=== PATIENT | female | born 1990 | race Caucasian/White ===

== ENCOUNTER 2016-11-15 21:56 | Emergency (ER) | payer MEDICAID, SELFPAY ==
[2016-11-15 22:27] LABS: Bilirubin Negative (Negative); Blood, Urine Negative (Negative); Glucose, Urine (Dipstick) Negative (Negative); Ketone, Urine Negative (Negative); Nitrite Negative (Negative); Protein, Urine (Dipstick) Negative (Neg-Trace); Urobilinogen 0.2 mg/dL (0.2-1.0)
[2016-11-15 22:34] LABS: Bacteria/HPF 1+ HPF (None Seen); RBC/HPF 0-3 HPF (0-3); Squamous Epithelial 0-3 HPF (0-3)
[2016-11-15] MEDS ORDERED: Bisacodyl 10 MG SUPP ONE (22:55)
[2016-11-15] MEDS ORDERED: Nitrofurantoin Monohyd/M-Cryst 100 MG CAP ONE (22:55)
[2016-11-15] MEDS ORDERED: Magnesium Citrate 300 ML BOT ONE (22:55)
--- NOTE | 2016-11-15 23:16 | ERRECORD ---
[facility] EMERGENCY RECORD HPI CONSTIPATION (22:51 JPIP) CHIEF COMPLAINT: Patient presents for evaluation of constipation, Patient presents for evaluation of abdominal pain, Patient presents for evaluation of no bowel movement, 1 week. HISTORIAN: History provided by patient. LOCATION: Symptoms are generalized. QUALITY: Pain is dull in nature, described as cramping. SEVERITY: Current severity of pain rated as 8/10. TIME COURSE: Sudden onset of symptoms, 1, weeks ago, There has been no change in the patient's symptoms over time, are constant, has had intermittent constipation for 1 year. ASSOCIATED WITH: No associated anorexia, No associated black tarry stools, No associated bloody stools, No associated decrease flatus, Associated with nausea, No associated rectal bleeding, Associated with vomiting, morning sickness prior to this event. EXACERBATED BY: Patient's condition exacerbated by nothing. RELIEVED BY: Patient's condition relieved by nothing. ROS (22:52 JPIP) CONSTITUTIONAL: Historian denies chills, denies fever. RESPIRATORY: Historian denies cough, denies shortness of breath. GI: Historian reports abdominal pain, reports constipation, reports nausea, reports vomiting. morning sickness. GENITOURINARY FEMALE: Historian reports dysuria, reports , reports urgency. SKIN: Historian denies rash, denies skin changes, denies skin lesions. NOTES: All systems reviewed, negative except as described above. PAST MEDICAL HISTORY MEDICAL HISTORY: Past medical history includes GERD REVIEWED 11/15/16. (22:22 CHOB) FEMALE SURGICAL HISTORY: Patient has no surgical history. REVIEWED 11/15/16. (22:22 CHOB) PSYCHIATRIC HISTORY: Psychiatric history includes, anxiety. REVIEWED 11/15/16. (22:22 CHOB) SOCIAL HISTORY: Patient drinks socially, Patient denies drug use, Patient currently uses tobacco, smokes cigarettes, Patient smokes 1 pack per day. STOPPED SMOKING ETOH 09/2016 UPON BECOMING REVIEWED 11/15/16. (22:22 CHOB) NOTES: Nursing records reviewed, Medication list reviewed. (22:54 JPIP) KNOWN ALLERGIES Bactrim: Reaction: Rash, Severity: Moderate, Source: Patient cephALEXin: Reaction: Anaphylaxis, Severity: Severe, Source: &a-1R&a+25V*p+0X*[id number]*c202B*c15G*c2P*p-0X&a-25V&a+1R Name: Hellen Deal : 1990 F25 MedRec: [id number] AcctNum: [id number] Prepared: TueNov 15, 2016 23:08 by Interface Page 1 of 3 pMD [facility] EMERGENCY RECORD Patient CURRENT MEDICATIONS (22:28 CHOB) None VITAL SIGNS VITAL SIGNS: BP: 119/90, Pulse: 78 (Regular), Resp: 18 (Non-Labored), Temp: 98.2 (Oral), Pain: 8 (Pressure), O2 sat: 100 on Room Air, Time: 11/15/2016 22:00. (22:00 CHOB) BP: 114/78, Pulse: 80, Resp: 18, Temp: 97.3, Pain: 8, O2 sat: 99 on RA, Time: 11/15/2016 22:59. (22:59 CHOB) PHYSICAL EXAM (22:53 JPIP) CONSTITUTIONAL: Vital signs reviewed, Patient afebrile, Pulse normal, Blood pressure normal, Respiratory rate normal, Patient appears, uncomfortable, Patient alert and oriented to person, place and time. HEAD: Head exam included findings of head atraumatic, normocephalic. EYES: Eye exam included findings of eyelids normal to inspection, Conjunctiva normal, Sclera normal, no periorbital ecchymosis, no periorbital edema, no periorbital erythema. NECK: Neck exam included findings of normal range of motion. RESPIRATORY CHEST: Respiratory exam included findings of no respiratory distress, Breath sounds clear, No wheezing, No rales, No rhonchi, Breath sounds not absent, Breath sounds not diminished. CARDIOVASCULAR: Cardiovascular exam included findings of heart rate regular rate and rhythm, Heart sounds normal. ABDOMEN FEMALE: Abdominal exam included findings of abdomen tender, diffusely, mild intensity, Bowel sounds, hypoactive, Liver normal, Spleen normal, no distension, no mass, no pulsatile masses, no peritoneal signs, no rigidity, no guarding, no rebound, no guarding, not an acute abdomen. BACK: no costovertebral angle tenderness. UPPER EXTREMITY: Upper extremity exam included findings of inspection normal, Range of motion normal. NEURO: [place] coma scale 15, Neuro exam findings include patient oriented to person, place and time, no focal motor deficits. SKIN: Skin exam included findings of skin warm, dry, and normal in color. PSYCHIATRIC: Normal affect. MEDICATION ADMINISTRATION SUMMARY Drug Name: Citroma, Dose Ordered: 296 mL, Route: Oral, Status: Given, Time: 22:58 11/15/2016, Drug Name: Dulcolax (bisacodyl) rectal, Dose Ordered: 10 mg, Route: Rectal, Status: Given, Time: 22:55 11/15/2016, Drug Name: Macrobid, Dose Ordered: 100 mg, Route: Oral, Status: &a-1R&a+25V*p+0X*[id number]*c202B*c15G*c2P*p-0X&a-25V&a+1R Name: Hellen Deal : 1990 F25 MedRec: [id number] AcctNum: [id number] Prepared: TueNov 15, 2016 23:08 by Interface Page 2 of 3 pMD [facility] EMERGENCY RECORD Given, Time: 22:53 11/15/2016, Detailed record available in Medication Service section. PROBLEM LIST No recorded problems DIAGNOSIS (22:50 JPIP) FINAL: PRIMARY: constipation, ADDITIONAL: Acute cystitis without hematuria. PRESCRIPTION Macrobid: CAPSULE (HARD, SOFT, ETC.) : 100 mg : ORAL : Quantity: 1 Unit: tab(s) Route: ORAL Schedule: 2 times a day (before meals) Dispense: 20 May substitute. Refills: No Refills . (22:43 JPIP) NOTES: No refills. (22:43 JPIP) BLANQUITA-COLACE tablet: TABLET : 8.6 mg-50 mg : ORAL : Quantity: 1-2 Unit: tab(s) Route: ORAL Schedule: 1 to 2 times a day Dispense: 30 May substitute. Refills: No Refills . (22:46 JPIP) NOTES: No refills. (22:46 JPIP) Miralax: POWDER (GM) : 17 gram/dose : ORAL : Quantity: 17 Unit: g Route: ORAL Schedule: once a day (in the morning) Dispense: 1 can May substitute. Refills: No Refills . (22:46 JPIP) NOTES: One scoop mixed in fluid of choice every day. No refills. (22:46 JPIP) DISPOSITION PATIENT: Disposition Type: Discharge, Disposition: *Discharge Home, Condition: Good. (22:50 JPIP) Patient left the department. (23:01 HARSHA) Lopez: HARSHA=SEBASTIAN Valdovinos, Jacqueline JPIP=DO Gallegos Joseph &a-1R&a+25V*p+0X*[id number]*c202B*c15G*c2P*p-0X&a-25V&a+1R Name: Sravani Dealbie Mason : 1990 F25 MedRec: [id number] AcctNum: [id number] Prepared: TueNov 15, 2016 23:08 by Interface Page 3 of 3 pMD MTDD
--- NOTE | 2016-11-15 23:27 | PICIS ---
[facility] EMERGENCY RECORD TRIAGE (TueNov 15, 2016 22:10 CHOB) PATIENT: NAME: Hellen Deal, AGE: 25, GENDER: female, : Sat 1990, TIME OF GREET: TueNov 15, 2016 21:57, PREFERRED LANGUAGE: Bangladeshi, ETHNICITY: Not or , ECODE BILLING MAP: [facility], SSN: [id number], Zip Code: [address], KG WEIGHT: 46.72 (est.), PHONE: , , , PERSON ID: [id number], PCP: MELA Gonsalez Kimberly. (TueNov 15, 2016 22:10 CHOB) PAYMENT: [facility] Medicaid. (22:17) TRIAGE NOTES: PT HAS BEEN CONSTIPATED X1 MONTH, IS 2 MONTHS . LAST BM 1.5 WEEKS AGO. ALSO C/O URINARY FREQUENCY X2 WEEKS AND ABDOMINAL PAIN/VOMITING. (TueNov 15, 2016 22:10 CHOB) COMPLAINT: CONSTIPATION. (TueNov 15, 2016 22:10 CHOB) ADMISSION: URGENCY: 3 Urgent, ADMISSION SOURCE: Home, TRANSPORT: CAR, BED: ER -03. (TueNov 15, 2016 22:10 CHOB) ASSESSMENT: Assessment: PT A/OX4, SPEAKS FULL SENTENCES, ABDOMEN SOFT, NON TENDER, HYPOACTIVE BS ALL QUADRANTS. RESPIRATIONS EVEN NON LABORED, SKIN PWD. AMBULATES WITH STEADY GAIT. NO ACUTE DISTRESS NOTED., Symptoms began 11/15/2015 22:46. (22:10 CHOB) PAIN: Location VOICES INTERMITTENT BLOATING/PRESSURE RATED 8/10, Pain is intermittent, No relieving factors. (22:10 CHOB) IMMUNIZATIONS: Notes: ALL IMMUNIZATIONS UP TO DATE. RECEIVED FLU SHOT 2015/2016 SE[place]ON. (22:10 CHOB) SIRS SCORING: Heart Rate 55-109 (0), Temp range 96.8-101.1 (0), respiratory rate 12-24 (0), Mental Status altered: no (0), Infection or Suspected Infection: No. (22:10 CHOB) TRIAGE SCREENING: Patient denies suicidal ideation, Patient denies presence of domestic violence. (22:10 CHOB) PROVIDERS: TRIAGE NURSE: Jacqueline Valdovinos RN. (TueNov 15, 2016 22:10 CHOB) VITAL SIGNS: BP 119/90, Pulse 78, (Regular), Resp 18, (Non-Labored), Temp 98.2, (Oral), Pain 8, (Pressure), O2 Sat 100, on Room Air, Time 11/15/2016 22:00. (22:00 CHOB) KNOWN ALLERGIES Bactrim: Reaction: Rash, Severity: Moderate, Source: Patient cephALEXin: Reaction: Anaphylaxis, Severity: Severe, Source: Patient CURRENT MEDICATIONS (22:28 CHOB) None VITAL SIGNS VITAL SIGNS: BP: 119/90, Pulse: 78 (Regular), Resp: 18 (Non-Labored), Temp: 98.2 (Oral), Pain: 8 (Pressure), O2 sat: 100 on Room Air, Time: 11/15/2016 22:00. (22:00 CHOB) BP: 114/78, Pulse: 80, Resp: 18, Temp: 97.3, Pain: 8, O2 sat: 99 on RA, Time: 11/15/2016 22:59. (22:59 CHOB) &a-1R&a+25V*p+0X*t5750V*c202B*c15G*c2P*p-0X&a-25V&a+1R Name: Hellen Deal : 1990 F25 MedRec: [id number] AcctNum: [id number] Prepared: TueNov 15, 2016 23:14 by Interface Page 1 of 8 pMD [facility] EMERGENCY RECORD NURSING ASSESSMENT: ABDOMEN (22:20 CHOB) CONSTITUTIONAL: Complex assessment performed, Patient arrives ambulatory, Gait steady, History obtained from patient, Patient appears comfortable, Patient cooperative, Patient alert, Oriented to person, place and time, Skin warm, Skin dry, Skin normal in color, Mucous membranes pink, Mucous membranes moist, Patient is well-groomed, Patient complains of ABDOMINAL PAIN, CONSTIPATION,URINARY FREQUENCY. PAIN: cramping pain, diffusely, Onset of pain 10/15/2016 22:28, constant, on a scale 0-10 patient rates pain as 8, PT HAS TAKEN MULTIPLE OTC LAXATIVES, INCLUDING CASTROL OIL, WHICH PT STATES DID WORK BUT PCP INSTRUCTED HER TO STOP TAKING APPX 2 WEEKS AGO. NO OTHER LAXATIVE TRIED HAS BEEN EFFECTIVE. ABDOMEN: Abdomen assessment findings include abdomen symmetrical, Abdomen soft, non-tender, Bowel sounds, hypoactive, to all four quadrants, Associated with nausea, Associated with vomiting, currently, Number of times: 1, vomiting food, no associated diarrhea, Associated with constipation, Date of last bowel movement: 11/07/16. LMP: First day last menstrual period, Last period started on 10/12/2016, Milestones: Estimated Conception: 10/26/2016 Estimated Due date: 07/19/2017 Estimated age: 4 weeks, 6 days, Patient confirms . GENITOURINARY FEMALE: Female genitourinary assessment findings include external genitalia normal, Associated with urinary complaints, frequency, no associated vaginal discharge, no associated vaginal bleeding, , per patient, Last menstrual period started on 10/12/2016, milestones: Estimated Conception: 10/26/2016 Estimated Due date: 07/19/2017 Estimated age: 4 weeks, 6 days, : 2, Para: 1, Elective abortions: 0, Spontaneous abortions: 0. SAFETY: Side rails up, Cart/Stretcher in lowest position, Family at bedside, Call light within reach, Hospital ID band on. NURSING ASSESSMENT: GENITOURINARY (22:20 CHOB) CONSTITUTIONAL: Complex assessment performed, Patient arrives ambulatory, Gait steady, History obtained from patient, Patient appears comfortable, Patient cooperative, Patient alert, Oriented to person, place and time, Skin warm, Skin dry, Skin normal in color, Mucous membranes pink, Mucous membranes moist, Patient is well-groomed, Patient complains of URINARY FREQUENCY,ABDOMINAL PAIN,CONSTIPATION. PAIN FEMALE: PT DENIES PAIN, VOICES URINARY FREQUENCY X2 WEEKS AND CLOUDY URINE. &a-1R&a+25V*p+0X*h6288I*c202B*c15G*c2P*p-0X&a-25V&a+1R Name: Hellen Deal : 1990 F25 MedRec: [id number] AcctNum: [id number] Prepared: TueNov 15, 2016 23:14 by Interface Page 2 of 8 pMD [facility] EMERGENCY RECORD GENITOURINARY FEMALE: Female genitourinary assessment findings include external genitalia normal, Associated with urinary complaints, frequency, Date and time of last void: 11/15/2016 22:33. ABDOMEN: Abdomen assessment findings include abdomen symmetrical, Abdomen soft, non-tender, Associated with nausea, Associated with vomiting, currently, Number of times: 1, vomiting food, no associated diarrhea, Associated with constipation, Date of last bowel movement: 11/07/16, no associated weight change, no associated appetite change, no associated foreign travel. SAFETY: Side rails up, Cart/Stretcher in lowest position, Family at bedside, Call light within reach, Hospital ID band on. NURSING PROCEDURE: DISCHARGE NOTE (22:59 CHOB) DISCHARGE: Patient discharged to home, ambulating without assistance, driving self, accompanied by other family member, Patient requested and was provided an electronic copy of Discharge Instructions, Discharge instructions given to patient, Simple or moderate discharge teaching performed, by SEBASTIAN HORTA, Prescriptions given and instructions on side effects given, Name of prescription(s) given: MIRILAX 17GM,PERICOLACE x30,MACROBID [id number], Above person(s) verbalized understanding of discharge instructions and follow-up care. BELONGINGS: Belongings and valuables with patient at time of discharge include:, Belongings remain with patient. SAFETY: Side rails up, Cart/Stretcher in lowest position, Family at bedside, Call light within reach, Hospital ID band on. VITAL SIGNS: BP: 114, / 78, Pulse: 80, Resp: 18, Temp: 97.3, Pain: 8, O2 sat: 99, on: RA. NURSING PROCEDURE: URINE COLLECTION (22:15 CHOB) PATIENT IDENTIFIER: Patient actively involved in identification process, Patient's identity verified by patient stating name, Patient's identity verified by patient stating date. URINE COLLECTION FEMALE: Urine collection indicated for URINARY FREQUENCY, Urine collected by mid-stream clean catch, Output amount (mL) 60, urine yellow in color, and clear, Specimen labeled in the presence of the patient and sent to lab, Specimen obtained for culture labeled in the presence of the patient and sent to lab. SAFETY: Side rails up, Cart/Stretcher in lowest position, Family at bedside, Call light within reach, Hospital ID band on. ORDER DETAILS Order Name: Culture, Urine, Status: Active, Time: 22:16 11/15/2016, User: LUZ, - Ordered for: DO Gallegos Joseph, - Entered by: DO Gallegos Joseph - TueNov 15, 2016 22:16, - Quantity: 1, &a-1R&a+25V*p+0X*u4689C*c202B*c15G*c2P*p-0X&a-25V&a+1R Name: Hellen Deal : 1990 F25 MedRec: [id number] AcctNum: [id number] Prepared: TueNov 15, 2016 23:14 by Interface Page 3 of 8 pMD [facility] EMERGENCY RECORD Order Name: Urinalysis with Microscopic, Status: Active, Time: 22:16 11/15/2016, User: LUZ, - Ordered for: DO Gallegos Joseph, - Entered by: DO Gallegos Joseph - TueNov 15, 2016 22:16, - Quantity: 1. MEDICATION ADMINISTRATION SUMMARY Drug Name: Citroma, Dose Ordered: 296 mL, Route: Oral, Status: Given, Time: 22:58 11/15/2016, Drug Name: Dulcolax (bisacodyl) rectal, Dose Ordered: 10 mg, Route: Rectal, Status: Given, Time: 22:55 11/15/2016, Drug Name: Macrobid, Dose Ordered: 100 mg, Route: Oral, Status: Given, Time: 22:53 11/15/2016, Detailed record available in Medication Service section. MEDICATION SERVICE Citroma: Order: Citroma (magnesium citrate) - Dose: 296 mL : Oral Schedule: Now Ordered by: Nasir Gallegos DO Entered by: Nasir Gallegos DO TueNov 15, 2016 22:42 , Acknowledged by: Jacqueline Valdovinos RN TueNov 15, 2016 22:45 Documented as given by: Jacqueline Valdovinos RN TueNov 15, 2016 22:58 Patient, Medication, Dose, Route and Time verified prior to administration. Amount given: 300MG(1 BOTTLE), Site: Medication administered P.O., Correct patient, time, route, dose and medication confirmed prior to administration, Patient advised of actions and side-effects prior to administration, Allergies confirmed and medications reviewed prior to administration, Patient in position of comfort, Side rails up, Cart in lowest position, Family at bedside, Call light in reach. Dulcolax (bisacodyl) rectal: Order: Dulcolax (bisacodyl) rectal (bisacodyl) - Dose: 10 mg : Rectal Schedule: Now Ordered by: Nasir Gallegos DO Entered by: Nasir Gallegos DO TueNov 15, 2016 22:42 , Acknowledged by: Jacqueline Valdovinos RN TueNov 15, 2016 22:45 Documented as given by: Jacqueline Valdovinos RN TueNov 15, 2016 22:55 Patient, Medication, Dose, Route and Time verified prior to administration. Amount given: 10MG(1 SUPP), Patient administered medication after instruction by staff on correct technique, Lubricant used for administration, Medication retained after administration, Correct patient, time, route, dose and medication confirmed prior to administration, Patient advised of actions and side-effects prior to administration, Allergies confirmed and medications reviewed prior to administration, Patient in position of comfort, Side rails up, Cart in lowest position, Family at bedside, Call light in reach. Macrobid: Order: Macrobid (nitrofurantoin/nitrofurantoin &a-1R&a+25V*p+0X*x3508J*c202B*c15G*c2P*p-0X&a-25V&a+1R Name: Hellen Deal : 1990 F25 MedRec: [id number] AcctNum: [id number] Prepared: TueNov 15, 2016 23:14 by Interface Page 4 of 8 pMD [facility] EMERGENCY RECORD macrocrystal) - Dose: 100 mg : Oral Schedule: Now Ordered by: Nasir Gallegos DO Entered by: Nasir Gallegos DO TueNov 15, 2016 22:42 , Acknowledged by: Jacqueline Valdovinos RN TueNov 15, 2016 22:45 Documented as given by: Jacqueline Valdovinos RN TueNov 15, 2016 22:53 Patient, Medication, Dose, Route and Time verified prior to administration. Site: Medication administered P.O., Correct patient, time, route, dose and medication confirmed prior to administration, Patient advised of actions and side-effects prior to administration, Allergies confirmed and medications reviewed prior to administration, Patient in position of comfort, Side rails up, Cart in lowest position, Family at bedside, Call light in reach. HPI CONSTIPATION (22:51 JPIP) CHIEF COMPLAINT: Patient presents for evaluation of constipation, Patient presents for evaluation of abdominal pain, Patient presents for evaluation of no bowel movement, 1 week. HISTORIAN: History provided by patient. LOCATION: Symptoms are generalized. QUALITY: Pain is dull in nature, described as cramping. SEVERITY: Current severity of pain rated as 8/10. TIME COURSE: Sudden onset of symptoms, 1, weeks ago, There has been no change in the patient's symptoms over time, are constant, has had intermittent constipation for 1 year. ASSOCIATED WITH: No associated anorexia, No associated black tarry stools, No associated bloody stools, No associated decrease flatus, Associated with nausea, No associated rectal bleeding, Associated with vomiting, morning sickness prior to this event. EXACERBATED BY: Patient's condition exacerbated by nothing. RELIEVED BY: Patient's condition relieved by nothing. ROS (22:52 JPIP) CONSTITUTIONAL: Historian denies chills, denies fever. RESPIRATORY: Historian denies cough, denies shortness of breath. GI: Historian reports abdominal pain, reports constipation, reports nausea, reports vomiting. morning sickness. GENITOURINARY FEMALE: Historian reports dysuria, reports , reports urgency. SKIN: Historian denies rash, denies skin changes, denies skin lesions. NOTES: All systems reviewed, negative except as described above. PAST MEDICAL HISTORY MEDICAL HISTORY: Past medical history includes GERD &a-1R&a+25V*p+0X*i5086H*c202B*c15G*c2P*p-0X&a-25V&a+1R Name: Hellne Deal : 1990 F25 MedRec: [id number] AcctNum: [id number] Prepared: TueNov 15, 2016 23:14 by Interface Page 5 of 8 pMD [facility] EMERGENCY RECORD REVIEWED 11/15/16. (22:22 CHOB) FEMALE SURGICAL HISTORY: Patient has no surgical history. REVIEWED 11/15/16. (22:22 CHOB) PSYCHIATRIC HISTORY: Psychiatric history includes, anxiety. REVIEWED 11/15/16. (22:22 CHOB) SOCIAL HISTORY: Patient drinks socially, Patient denies drug use, Patient currently uses tobacco, smokes cigarettes, Patient smokes 1 pack per day. STOPPED SMOKING ETOH 09/2016 UPON BECOMING REVIEWED 11/15/16. (22:22 CHOB) NOTES: Nursing records reviewed, Medication list reviewed. (22:54 JPIP) PHYSICAL EXAM (22:53 JPIP) CONSTITUTIONAL: Vital signs reviewed, Patient afebrile, Pulse normal, Blood pressure normal, Respiratory rate normal, Patient appears, uncomfortable, Patient alert and oriented to person, place and time. HEAD: Head exam included findings of head atraumatic, normocephalic. EYES: Eye exam included findings of eyelids normal to inspection, Conjunctiva normal, Sclera normal, no periorbital ecchymosis, no periorbital edema, no periorbital erythema. NECK: Neck exam included findings of normal range of motion. RESPIRATORY CHEST: Respiratory exam included findings of no respiratory distress, Breath sounds clear, No wheezing, No rales, No rhonchi, Breath sounds not absent, Breath sounds not diminished. CARDIOVASCULAR: Cardiovascular exam included findings of heart rate regular rate and rhythm, Heart sounds normal. ABDOMEN FEMALE: Abdominal exam included findings of abdomen tender, diffusely, mild intensity, Bowel sounds, hypoactive, Liver normal, Spleen normal, no distension, no mass, no pulsatile masses, no peritoneal signs, no rigidity, no guarding, no rebound, no guarding, not an acute abdomen. BACK: no costovertebral angle tenderness. UPPER EXTREMITY: Upper extremity exam included findings of inspection normal, Range of motion normal. NEURO: Bebo coma scale 15, Neuro exam findings include patient oriented to person, place and time, no focal motor deficits. SKIN: Skin exam included findings of skin warm, dry, and normal in color. PSYCHIATRIC: Normal affect. LAB INTERPRETATION (22:54 JPIP) INTERPRETATION: Urinalysis abnormal, positive for leukocytes, positive for bacteria. EVENTS TRANSFER: Triage to Emergency Emergency Room -03. (TueNov 15, 2016 22:10 CHOB) &a-1R&a+25V*p+0X*h9594P*c202B*c15G*c2P*p-0X&a-25V&a+1R Name: Hellen Deal : 1990 F25 MedRec: [id number] AcctNum: [id number] Prepared: TueNov 15, 2016 23:14 by Interface Page 6 of 8 pMD [facility] EMERGENCY RECORD Removed from Emergency Emergency Room -03. (23:01 CHOB) O2SAT INTERPRETATION (22:15 JPIP) O2SAT: Single pulse oximetry, Oxygen saturation 100%, on room air, Oxygen saturation interpretation: Normal, No intervention required. PROBLEM LIST No recorded problems DIAGNOSIS (22:50 JPIP) FINAL: PRIMARY: constipation, ADDITIONAL: Acute cystitis without hematuria. DISPOSITION PATIENT: Disposition Type: Discharge, Disposition: *Discharge Home, Condition: Good. (22:50 JPIP) Patient left the department. (23:01 CHOB) INSTRUCTION (22:47 JPIP) DISCHARGE: CONSTIPATION (ADULT). [facility] [address], . SPECIAL: Follow up with Primary Care Physician within 72 hours Return to the Emergency Department for increased symptoms problems or concerns Take acetaminophen/Tylenol for pain. PRESCRIPTION Macrobid: CAPSULE (HARD, SOFT, ETC.) : 100 mg : ORAL : Quantity: 1 Unit: tab(s) Route: ORAL Schedule: 2 times a day (before meals) Dispense: 20 May substitute. Refills: No Refills . (22:43 JPIP) NOTES: No refills. (22:43 JPIP) BLANQUITA-COLACE tablet: TABLET : 8.6 mg-50 mg : ORAL : Quantity: 1-2 Unit: tab(s) Route: ORAL Schedule: 1 to 2 times a day Dispense: 30 May substitute. Refills: No Refills . (22:46 JPIP) NOTES: No refills. (22:46 JPIP) Miralax: POWDER (GM) : 17 gram/dose : ORAL : Quantity: 17 Unit: g Route: ORAL Schedule: once a day (in the morning) Dispense: 1 can May substitute. Refills: No Refills . (22:46 JPIP) NOTES: One scoop mixed in fluid of choice every day. No refills. (22:46 JPIP) IMAGING (23:12 CHOB) *DISCHARGE INSTRUCTIONS RECEIPT: Image captured from scanner. *SUPPLY CHARGE SHEET: Image captured from scanner. &a-1R&a+25V*p+0X*x2057S*c202B*c15G*c2P*p-0X&a-25V&a+1R Name: Hellen Deal : 1990 F25 MedRec: [id number] AcctNum: [id number] Prepared: TueNov 15, 2016 23:14 by Interface Page 7 of 8 pMD [facility] EMERGENCY RECORD RESULTS (22:42 JPIP) LABORATORY: Urinalysis with Microscopic Collection DT: TueNov 15, 2016 22:27, Color Yellow , Range (Yellow), Clarity Slightly Cloudy , Range (Clear), Specific [place], Urine 1.020 , Range (1.005-1.030), pH, Urine 6.0 , Range (5.0-9.0), *Leukocyte Small - H , Range (Negative), Nitrite Negative , Range (Negative), Protein, Urine (Dipstick) Negative mg/dL, Range (Neg-Trace), Glucose, Urine (Dipstick) Negative mg/dL, Range (Negative), Ketone, Urine Negative mg/dL, Range (Negative), Urobilinogen 0.2 mg/dL, Range (0.2-1.0), Bilirubin Negative , Range (Negative), Blood, Urine Negative , Range (Negative), RBC/HPF 0-3 HPF, Range (0-3), *WBC/HPF 4-6 - H HPF, Range (0-3), Squamous Epithelial 0-3 HPF, Range (0-3), *Bacteria/HPF 1+ - H HPF, Range (None Seen). Lopez: HARSHA=SEBASTIAN Valdovinos, Jacqueline JPIP=DO Gallegos Joseph &a-1R&a+25V*p+0X*a2431O*c202B*c15G*c2P*p-0X&a-25V&a+1R Name: Hellen Deal : 1990 F25 MedRec: [id number] AcctNum: [id number] Prepared: TueNov 15, 2016 23:14 by Interface Page 8 of 8 pMD MTDD
== END 2016-11-15 22:59 | disposition home or self-care (01) ==
LOC: BURERS 21:56
DX: K59.00 Constipation, unspecified (principal); N30.01 Acute cystitis with hematuria; K21.9 Gastro-esophageal reflux disease without esophagitis; F41.9 Anxiety disorder, unspecified; F17.210 Nicotine dependence, cigarettes, uncomplicated
CPT/HCPCS: 81001; 87086; 99284

== ENCOUNTER 2017-01-15 17:10 | Emergency (ER) | payer MEDICAID, OTHER ==
[2017-01-15] MEDS ORDERED: Ketorolac Tromethamine 30 MG/ML VIAL ONE (17:24)
[2017-01-15] MEDS ORDERED: diphenhydrAMINE HCl 50 MG/ML 1 ML VIAL ONE (17:24)
== END 2017-01-15 18:13 | disposition home or self-care (01) ==
LOC: BURERS 17:10
DX: G43.009 Migraine without aura, not intractable, without status migrainosus (principal); F17.210 Nicotine dependence, cigarettes, uncomplicated; Z79.899 Other long term (current) drug therapy
CPT/HCPCS: 96374; 96375; J1200; J1885

== ENCOUNTER 2017-11-20 04:29 | Emergency (ER) | payer OTHER, SELFPAY ==
[2017-11-20] MEDS ORDERED: Clindamycin 150 MG CAP ONE (04:59)
[2017-11-20] MEDS ORDERED: Ibuprofen 200 MG TAB ONE (04:59)
== END 2017-11-20 05:06 | disposition home or self-care (01) ==
LOC: BURERS 04:29
DX: K04.7 Periapical abscess without sinus (principal); F17.210 Nicotine dependence, cigarettes, uncomplicated
CPT/HCPCS: 99282

== ENCOUNTER → 2018-08-24 | Emergency (ER) | payer SELFPAY ==
--- NOTE | 2018-08-24 20:30 | RAD ---
CHEST TWO VIEWS: 08/24/18 Comparison is made with a 12/11/15 study. The heart is normal in size and the lungs are clear. No acute infiltrate or effusion was seen. There is probably a minor amount of apical pleural scarring or thickening. The bony structures appear intac t. IMPRESSION: No acute thoracic finding. POS: HOME
== END ==
LOC: BURERS 15:18
DX: J06.9 Acute upper respiratory infection, unspecified (principal); F41.9 Anxiety disorder, unspecified; F17.210 Nicotine dependence, cigarettes, uncomplicated
CPT/HCPCS: 71046

== ENCOUNTER 2019-01-01 19:12 | Emergency (ER) | payer SELFPAY ==
[2019-01-01] MEDS ORDERED: Famotidine 20 MG TAB ONE ×2 (19:50→19:51)
[2019-01-01] MEDS ORDERED: Mag-Al Plus 1200 MG/1200 MG/120 MG/30 ML UDCUP ONE (19:50)
[2019-01-01] MEDS ORDERED: Lidocaine Viscous Sol 2% 15 ml UD Cup ONE (19:50)
[2019-01-01 20:02] LABS: #Basophils 0.1 thou/uL (0.0-0.2); #Eosinphils 0.3 thou/uL (0.0-0.7); #Lymphocytes 3.2 thou/uL (1.20-3.40); #Monocytes 0.4 thou/uL (0.11-0.59); #Neutrophils 4.2 thou/uL (1.40-6.50); %Basophils 0.8 % (0.0-1.0); %Eosinophils 3.4 % (0.0-10.0); %Lymphocytes 38.9 % (21.0-51.0); %Monocytes 5.1 % (0.0-10.0); %Neutrophils 51.7 % (42.0-75.0); Hemoglobin 12.6 g/dL (12.0-16.0); Mean Corpuscular HGB CONC 35.5 g/dL (32.0-36.0); Mean Corpuscular Hemoglobin 33.8 pg (27.0-31.0); Mean Corpuscular Volume 95.2 fL (78.0-98.0); Mean Platelet Volume 6.4 fL (7.4-10.4); Platelet Count 233 thou/uL (130-400); RBC Distribution Width 12.4 % (11.5-14.5); Red Blood Cell (RBC) Count 3.74 mill/uL (4.20-5.40); White Blood Cell (WBC) Count 8.2 thou/uL (4.8-10.8)
[2019-01-01 20:19] LABS: ALT (SGPT) 12 U/L (8-55); AST (SGOT) 19 U/L (5-34); Albumin 3.9 g/dL (3.5-5.0); Alkaline Phosphatase 33 U/L (40-150); Anion Gap 11 mmol/L (10-20); BUN (Urea Nitrogen) 10 mg/dL (7.0-18.7); Bilirubin, Total 0.3 mg/dL (0.2-1.2); Calc. Creatinine Clearance 0 mL/min (70-130); Calcium 9.4 mg/dL (7.8-10.44); Carbon Dioxide 29 mmol/L (22-29); Chloride 105 mmol/L (98-107); Estimated GFR-MDRD Greater than 90; Globulin 2.6 g/dL (2.4-3.5); Glucose 88 mg/dL (70-105); Lipase 25 U/L (8-78); Potassium 3.9 mmol/L (3.5-5.1); Protein, Total 6.5 g/dL (6.0-8.3); Sodium 141 mmol/L (136-145)
== END 2019-01-01 21:00 | disposition home or self-care (01) ==
LOC: BURERS 19:12
DX: K21.0 Gastro-esophageal reflux disease with esophagitis (principal); F41.9 Anxiety disorder, unspecified; F17.210 Nicotine dependence, cigarettes, uncomplicated
CPT/HCPCS: 36415; 80053; 83690; 84484; 85025; 93005

== ENCOUNTER 2019-01-15 00:41 | Emergency (ER) | payer SELFPAY ==
[2019-01-15] MEDS ORDERED: Milk Of Magnesia 30 ML UDCUP ONE (01:24)
[2019-01-15] MEDS ORDERED: Lidocaine 2% Jelly 5 ML TUBE ONE (01:24)
--- NOTE | 2019-01-15 07:48 | RAD ---
PORTABLE CHEST: Date: 01/15/19 An AP portable film at 0039 hours is compared with the 08/24/18 study. FINDINGS: The heart is normal in size and the lungs are clear. No infiltrate or effusion seen. There is no vasc ular congestion or edema. Mediastinum appears normal and the trachea is midline. A small density to t he left of the heart may be either a vessel on-end or a small granuloma. IMPRESSION: No acute thoracic finding. POS: HOME
== END 2019-01-15 01:49 | disposition home or self-care (01) ==
LOC: BURERS 00:41
DX: R07.89 Other chest pain (principal); K21.9 Gastro-esophageal reflux disease without esophagitis; F41.9 Anxiety disorder, unspecified; F17.210 Nicotine dependence, cigarettes, uncomplicated; Z79.899 Other long term (current) drug therapy
CPT/HCPCS: 71045; 93005

== ENCOUNTER 2019-02-17 03:57 | Emergency (ER) | payer SELFPAY | END 2019-02-17 04:20 | disposition home or self-care (01) | LOC: BURERS 03:57 | DX: F41.9 Anxiety disorder, unspecified (principal); F17.210 Nicotine dependence, cigarettes, uncomplicated; K21.9 Gastro-esophageal reflux disease without esophagitis; Z79.899 Other long term (current) drug therapy ==

== ENCOUNTER 2019-03-05 16:42 | Emergency (ER) | payer SELFPAY ==
[2019-03-05 17:35] LABS: ALT (SGPT) 12 U/L (8-55); AST (SGOT) 21 U/L (5-34); Albumin 4.2 g/dL (3.5-5.0); Alkaline Phosphatase 30 U/L (40-150); Anion Gap 15 mmol/L (10-20); BUN (Urea Nitrogen) 8 mg/dL (7.0-18.7); Bilirubin, Total 0.4 mg/dL (0.2-1.2); Calc. Creatinine Clearance 0 mL/min (70-130); Calcium 9.7 mg/dL (7.8-10.44); Carbon Dioxide 26 mmol/L (22-29); Chloride 103 mmol/L (98-107); Estimated GFR-MDRD Greater than 90; Globulin 2.8 g/dL (2.4-3.5); Glucose 87 mg/dL (70-105); Potassium 3.8 mmol/L (3.5-5.1); Sodium 140 mmol/L (136-145)
[2019-03-05 17:38] LABS: #Basophils 0.1 thou/uL (0.0-0.2); #Lymphocytes 2.1 thou/uL (1.20-3.40); #Monocytes 0.3 thou/uL (0.11-0.59); #Neutrophils 4.7 thou/uL (1.40-6.50); %Basophils 0.9 % (0.0-1.0); %Eosinophils 0.2 % (0.0-10.0); %Lymphocytes 29.5 % (21.0-51.0); %Monocytes 3.9 % (0.0-10.0); %Neutrophils 65.6 % (42.0-75.0); Hemoglobin 13.1 g/dL (12.0-16.0); Mean Corpuscular HGB CONC 32.6 g/dL (32.0-36.0); Mean Corpuscular Volume 98.1 fL (78.0-98.0); Mean Platelet Volume 6.6 fL (7.4-10.4); Platelet Count 215 thou/uL (130-400); RBC Distribution Width 12.8 % (11.5-14.5); Red Blood Cell (RBC) Count 4.09 mill/uL (4.20-5.40); White Blood Cell (WBC) Count 7.2 thou/uL (4.8-10.8)
== END 2019-03-05 17:56 | disposition home or self-care (01) ==
LOC: BURERS 16:42
DX: F41.9 Anxiety disorder, unspecified (principal); K21.9 Gastro-esophageal reflux disease without esophagitis; F17.210 Nicotine dependence, cigarettes, uncomplicated
CPT/HCPCS: 80053; 84484; 85025; 85379; 93005

== ENCOUNTER 2019-04-16 17:07 | Emergency (ER) | payer SELFPAY ==
[2019-04-16] MEDS ORDERED: predniSONE 20 MG TAB ONE (18:17)
--- NOTE | 2019-04-16 19:26 | RAD ---
CHEST TWO VIEWS: 04/16/2019 COMPARISON: 01/15/2019 FINDINGS: Allowing for the patient being turned to the side slightly, the lungs are probably clear. No lobar i nfiltrate or effusion is seen. Heart size is normal. There is no congestive change. The trachea is midline. IMPRESSION: No definite acute findings. POS: HOME
== END 2019-04-16 19:29 | disposition home or self-care (01) ==
LOC: BURERS 17:07
DX: J20.9 Acute bronchitis, unspecified (principal); B96.89 Other specified bacterial agents as the cause of diseases classified elsewhere; F17.210 Nicotine dependence, cigarettes, uncomplicated
CPT/HCPCS: 71046; J7512; J7620

== ENCOUNTER 2019-10-19 11:12 | Emergency (ER) | payer SELFPAY ==
[2019-10-19 11:56] LABS: #Basophils 0.1 thou/uL (0.0-0.2); #Lymphocytes 1.5 thou/uL (1.20-3.40); #Monocytes 0.4 thou/uL (0.11-0.59); #Neutrophils 8.1 thou/uL (1.40-6.50); %Basophils 0.8 % (0.0-1.0); %Eosinophils 0.4 % (0.0-10.0); %Lymphocytes 15.1 % (21.0-51.0); %Monocytes 4.2 % (0.0-10.0); %Neutrophils 79.5 % (42.0-75.0); Hemoglobin 13.7 g/dL (12.0-16.0); Mean Corpuscular HGB CONC 32.7 g/dL (32.0-36.0); Mean Corpuscular Volume 97.8 fL (78.0-98.0); Mean Platelet Volume 7.6 fL (7.4-10.4); Platelet Count 201 thou/uL (130-400); RBC Distribution Width 12.2 % (11.5-14.5); Red Blood Cell (RBC) Count 4.29 mill/uL (4.20-5.40); White Blood Cell (WBC) Count 10.2 thou/uL (4.8-10.8)
[2019-10-19 12:07] LABS: ALT (SGPT) 13 U/L (8-55); AST (SGOT) 22 U/L (5-34); Albumin 4.3 g/dL (3.5-5.0); Alkaline Phosphatase 24 U/L (40-110); Anion Gap 13 mmol/L (10-20); BUN (Urea Nitrogen) 12 mg/dL (7.0-18.7); Bilirubin, Total 0.6 mg/dL (0.2-1.2); Calc. Creatinine Clearance 0 mL/min (70-130); Calcium 9.2 mg/dL (7.8-10.44); Carbon Dioxide 25 mmol/L (22-29); Chloride 104 mmol/L (98-107); Estimated GFR-MDRD Greater than 90; Globulin 2.7 g/dL (2.4-3.5); Glucose 102 mg/dL (70-105); Potassium 3.9 mmol/L (3.5-5.1); Sodium 138 mmol/L (136-145)
--- NOTE | 2019-10-19 14:21 | RAD ---
PORTABLE CHEST: DATE: 10/19/2019. FINDINGS: An AP portable film at 1147 is compared with a 04/16/2019 study. There has been no adverse interval ch jania. The heart is normal in size and the lungs are clear. No effusions are seen. IMPRESSION: No acute findings. POS: HOME
== END 2019-10-19 12:46 | disposition home or self-care (01) ==
LOC: BURERS 11:12
DX: R00.2 Palpitations (principal); F17.210 Nicotine dependence, cigarettes, uncomplicated; F41.9 Anxiety disorder, unspecified
CPT/HCPCS: 36415; 71045; 80053; 85025; 85379; 93005

== ENCOUNTER 2019-12-03 00:53 | Emergency (ER) | payer SELFPAY ==
[2019-12-03 01:12] LABS: Bilirubin Negative (Negative); Blood, Urine Negative (Negative); Clarity Hazy (Clear); Glucose, Urine (Dipstick) Negative (Negative); Leukocyte Negative (Negative); Nitrite Negative (Negative); Protein, Urine (Dipstick) Negative (Neg-Trace); Urobilinogen 0.2 mg/dL (Less than 2)
[2019-12-03] MEDS ORDERED: Cyclobenzaprine 10 MG TAB ONE (01:30)
[2019-12-03] MEDS ORDERED: Ibuprofen 200 MG TAB ONE (01:30)
== END 2019-12-03 01:36 | disposition home or self-care (01) ==
LOC: BURERS 00:53
DX: R07.89 Other chest pain (principal); F17.210 Nicotine dependence, cigarettes, uncomplicated; F41.9 Anxiety disorder, unspecified
CPT/HCPCS: 81003

== ENCOUNTER 2020-11-03 13:40 | Emergency (ER) | payer SELFPAY ==
[2020-11-04 01:19] LABS: SARS-CoV-2 MS2 Positive; SARS-CoV-2 N Gene Negative; SARS-CoV-2 S Gene Negative; SARS-CoV-2 by NAA Not Detected (NotDetected); SARS-CoV-2 orf1ab Negative
== END 2020-11-03 14:10 | disposition home or self-care (01) ==
LOC: BURERS 13:40
DX: B34.9 Viral infection, unspecified (principal); F17.210 Nicotine dependence, cigarettes, uncomplicated; Z20.828 Contact with and (suspected) exposure to other viral communicable diseases
CPT/HCPCS: 87635; 99283; U0003

== ENCOUNTER 2020-12-04 10:22 | Emergency (ER) | payer SELFPAY ==
[2020-12-04 12:04] LABS: #Basophils 0.1 thou/uL (0.0-0.2); #Eosinphils 0.1 thou/uL (0.0-0.7); #Lymphocytes 2.5 thou/uL (1.20-3.40); #Monocytes 0.4 thou/uL (0.11-0.59); #Neutrophils 4.8 thou/uL (1.40-6.50); %Eosinophils 1.2 % (0.0-10.0); %Lymphocytes 31.6 % (21.0-51.0); %Monocytes 4.9 % (0.0-10.0); %Neutrophils 61.3 % (42.0-75.0); Hemoglobin 14.7 g/dL (12.0-16.0); Mean Corpuscular HGB CONC 32.4 g/dL (32.0-36.0); Mean Corpuscular Volume 98.7 fL (78.0-98.0); Mean Platelet Volume 7.7 fL (7.4-10.4); Platelet Count 232 thou/uL (130-400); RBC Distribution Width 12.4 % (11.5-14.5); Red Blood Cell (RBC) Count 4.59 mill/uL (4.20-5.40); White Blood Cell (WBC) Count 7.9 thou/uL (4.8-10.8)
[2020-12-04 12:18] LABS: ALT (SGPT) 14 U/L (8-55); AST (SGOT) 18 U/L (5-34); Albumin 4.2 g/dL (3.5-5.0); Alkaline Phosphatase 28 U/L (40-110); Anion Gap 12 mmol/L (10-20); BUN (Urea Nitrogen) 10 mg/dL (7.0-18.7); Bilirubin, Total 0.5 mg/dL (0.2-1.2); Calc. Creatinine Clearance 0 mL/min (70-130); Carbon Dioxide 26 mmol/L (22-29); Chloride 106 mmol/L (98-107); Globulin 2.5 g/dL (2.4-3.5); Glucose 90 mg/dL (70-105); Potassium 4.3 mmol/L (3.5-5.1); Protein, Total 6.7 g/dL (6.0-8.3); Sodium 140 mmol/L (136-145)
== END 2020-12-04 12:53 | disposition home or self-care (01) ==
LOC: BURERS 10:22
DX: M79.605 Pain in left leg (principal); M79.602 Pain in left arm; Z79.82 Long term (current) use of aspirin; F17.210 Nicotine dependence, cigarettes, uncomplicated
CPT/HCPCS: 36415; 80053; 85025; 85379; 99283

== ENCOUNTER 2021-04-19 23:23 | Emergency (ER) | payer OTHER, SELFPAY ==
[2021-04-20] MEDS ORDERED: predniSONE 20 MG TAB ONE (00:09)
== END 2021-04-20 00:05 | disposition home or self-care (01) ==
LOC: BURERS 23:23
DX: R05 Cough (principal); R06.02 Shortness of breath; F17.210 Nicotine dependence, cigarettes, uncomplicated
CPT/HCPCS: 93005; J7512

== ENCOUNTER 2021-12-28 03:30 | Emergency (ER) | payer MEDICAID, SELFPAY | END 2021-12-28 04:30 | disposition home or self-care (01) | LOC: BURERS 03:30 | DX: K21.9 Gastro-esophageal reflux disease without esophagitis (principal); F41.1 Generalized anxiety disorder; F17.210 Nicotine dependence, cigarettes, uncomplicated; Z79.899 Other long term (current) drug therapy | CPT/HCPCS: 71045; 93005 ==

== ENCOUNTER 2022-03-14 23:36 | Emergency (ER) | payer SELFPAY ==
[2022-03-15 00:02] LABS: Bilirubin Negative (Negative); Blood, Urine Negative (Negative); Clarity Clear (Clear); Glucose, Urine (Dipstick) Negative (Negative); Ketone, Urine Negative (Negative); Leukocyte Negative (Negative); Nitrite Negative (Negative); Protein, Urine (Dipstick) Negative (Neg-Trace); Urobilinogen 0.2 mg/dL (Less than 2)
[2022-03-15] MEDS ORDERED: Dicyclomine 20 MG TAB ONE (00:25)
[2022-03-15] MEDS ORDERED: Magnesium Citrate 300 ML BOT ONE (00:35)
== END 2022-03-15 00:47 | disposition home or self-care (01) ==
LOC: BURERS 23:36
DX: K59.00 Constipation, unspecified (principal); R10.12 Left upper quadrant pain; K21.9 Gastro-esophageal reflux disease without esophagitis; F17.210 Nicotine dependence, cigarettes, uncomplicated; Z79.899 Other long term (current) drug therapy
CPT/HCPCS: 74176; 81003

== ENCOUNTER 2022-03-15 15:38 | Emergency (ER) | payer SELFPAY ==
[2022-03-15 16:30] LABS: #Basophils 0.1 thou/uL (0.0-0.2); #Eosinphils 0.1 thou/uL (0.0-0.7); #Lymphocytes 1.6 thou/uL (1.20-3.40); #Monocytes 0.5 thou/uL (0.11-0.59); #Neutrophils 4.2 thou/uL (1.40-6.50); %Basophils 1.2 % (0.0-1.0); %Eosinophils 1.3 % (0.0-10.0); %Lymphocytes 25.3 % (21.0-51.0); %Monocytes 7.2 % (0.0-10.0); Hemoglobin 13.8 g/dL (12.0-16.0); Mean Corpuscular Hemoglobin 33.5 pg (27.0-31.0); Mean Corpuscular Volume 98.5 fL (78.0-98.0); Mean Platelet Volume 7.3 fL (7.4-10.4); Platelet Count 176 thou/uL (130-400); RBC Distribution Width 11.8 % (11.5-14.5); Red Blood Cell (RBC) Count 4.13 mill/uL (4.20-5.40); White Blood Cell (WBC) Count 6.5 thou/uL (4.8-10.8)
[2022-03-15 16:45] LABS: ALT (SGPT) 15 U/L (8-55); AST (SGOT) 19 U/L (5-34); Alkaline Phosphatase 26 U/L (40-110); Anion Gap 15 mmol/L (10-20); BHCG - Serum Negative (NEGATIVE); BUN (Urea Nitrogen) 7 mg/dL (7.0-18.7); Bilirubin, Total 0.2 mg/dL (0.2-1.2); CK (CPK) 104 U/L (29-168); CRP (Inflammatory) Less than 0.50 mg/dL (= or < 0.5); Calc. Creatinine Clearance 0 mL/min (70-130); Calcium 9.1 mg/dL (7.8-10.44); Carbon Dioxide 28 mmol/L (22-29); Chloride 102 mmol/L (98-107); Globulin 2.8 g/dL (2.4-3.5); Glucose 93 mg/dL (70-105); Lipase 19 U/L (8-78); Potassium 4.1 mmol/L (3.5-5.1); Pregs Control Background? CLEAR/WHITE (CLR/WHITE); Pregs Control Bar Appear? YES (CONTROL BAR); Protein, Total 6.8 g/dL (6.0-8.3); Sodium 141 mmol/L (136-145)
[2022-03-15] MEDS ORDERED: Ketorolac Tromethamine 30 MG/ML VIAL ONE (17:16)
[2022-03-15] MEDS ORDERED: Ondansetron ODT 4 MG TAB ONE (17:16)
== END 2022-03-15 17:28 | disposition home or self-care (01) ==
LOC: BURERS 15:38
DX: N20.1 Calculus of ureter (principal); K59.00 Constipation, unspecified; K21.9 Gastro-esophageal reflux disease without esophagitis; F17.210 Nicotine dependence, cigarettes, uncomplicated
CPT/HCPCS: 36415; 74022; 80053; 82150; 82550; 83690; 84484; 84703; 85025; 86140; 96372; J1885; Q0162

== ENCOUNTER 2022-03-16 19:30 | Emergency (ER) | payer SELFPAY ==
[2022-03-16 21:35] LABS: Bilirubin Negative (Negative); Blood, Urine Negative (Negative); Clarity Clear (Clear); Glucose, Urine (Dipstick) Negative (Negative); Ketone, Urine 15 mg/dL (Negative); Leukocyte Negative (Negative); Nitrite Negative (Negative); Protein, Urine (Dipstick) Negative (Neg-Trace); Urobilinogen 0.2 mg/dL (Less than 2)
[2022-03-16 21:38] LABS: Specific Gravity, Urine Less/Equal 1.005 (1.005-1.030)
== END 2022-03-16 22:15 | disposition home or self-care (01) ==
LOC: BURERS 19:30
DX: K59.00 Constipation, unspecified (principal); R05.9 Cough, unspecified; K21.9 Gastro-esophageal reflux disease without esophagitis; F17.210 Nicotine dependence, cigarettes, uncomplicated; Z79.82 Long term (current) use of aspirin; Z79.899 Other long term (current) drug therapy
CPT/HCPCS: 74018; 81003

== ENCOUNTER 2022-04-17 02:06 | Emergency (ER) | payer SELFPAY ==
[2022-04-17 02:47] LABS: #Basophils 0.1 thou/uL (0.0-0.2); #Eosinphils 0.2 thou/uL (0.0-0.7); #Lymphocytes 3.2 thou/uL (1.20-3.40); #Monocytes 0.4 thou/uL (0.11-0.59); #Neutrophils 3.8 thou/uL (1.40-6.50); %Basophils 1.1 % (0.0-1.0); %Eosinophils 2.9 % (0.0-10.0); %Lymphocytes 41.4 % (21.0-51.0); %Monocytes 5.6 % (0.0-10.0); Hemoglobin 13.3 g/dL (12.0-16.0); Mean Corpuscular Hemoglobin 33.9 pg (27.0-31.0); Mean Corpuscular Volume 96.8 fL (78.0-98.0); Platelet Count 177 thou/uL (130-400); RBC Distribution Width 12.1 % (11.5-14.5); Red Blood Cell (RBC) Count 3.93 mill/uL (4.20-5.40); White Blood Cell (WBC) Count 7.7 thou/uL (4.8-10.8)
[2022-04-17 02:58] LABS: Bilirubin Negative (Negative); Blood, Urine Moderate (Negative); Clarity Clear (Clear); Glucose, Urine (Dipstick) Negative (Negative); Ketone, Urine Negative (Negative); Leukocyte Negative (Negative); Nitrite Negative (Negative); Protein, Urine (Dipstick) Negative (Neg-Trace); Specific Gravity, Urine 1.015 (1.005-1.030); Urobilinogen 0.2 mg/dL (Less than 2); pH, Urine 7.5 (5.0-9.0)
[2022-04-17 03:05] LABS: ALT (SGPT) 13 U/L (8-55); AST (SGOT) 16 U/L (5-34); Albumin 3.9 g/dL (3.5-5.0); Alkaline Phosphatase 24 U/L (40-110); Anion Gap 15 mmol/L (10-20); BUN (Urea Nitrogen) 11 mg/dL (7.0-18.7); Bilirubin, Total 0.5 mg/dL (0.2-1.2); Calc. Creatinine Clearance 0 mL/min (70-130); Carbon Dioxide 25 mmol/L (22-29); Chloride 107 mmol/L (98-107); Globulin 2.8 g/dL (2.4-3.5); Glucose 92 mg/dL (70-105); Lipase 33 U/L (8-78); Potassium 3.6 mmol/L (3.5-5.1); Protein, Total 6.7 g/dL (6.0-8.3); Sodium 143 mmol/L (136-145)
[2022-04-17 03:05] LABS: Bacteria/HPF Rare-Few HPF (None Seen); Squamous Epithelial 0-3 HPF (0-3); WBC/HPF 0-3 HPF (0-3)
== END 2022-04-17 03:36 | disposition home or self-care (01) ==
LOC: BURERS 02:06
DX: J20.9 Acute bronchitis, unspecified (principal); R00.2 Palpitations; K21.9 Gastro-esophageal reflux disease without esophagitis; F17.210 Nicotine dependence, cigarettes, uncomplicated; Z79.899 Other long term (current) drug therapy
CPT/HCPCS: 71045; 80053; 81003; 81015; 83690; 84484; 85025; 93005

== ENCOUNTER 2022-06-14 00:10 | Emergency (ER) | payer SELFPAY ==
[2022-06-14] MEDS ORDERED: Ondansetron ODT 4 MG TAB ONE (00:34)
[2022-06-14] MEDS ORDERED: Famotidine 20 MG TAB ONE (00:37)
[2022-06-14 01:05] LABS: Bilirubin Negative (Negative); Blood, Urine Negative (Negative); Clarity Clear (Clear); Glucose, Urine (Dipstick) Negative (Negative); Ketone, Urine Negative (Negative); Leukocyte Negative (Negative); Nitrite Negative (Negative); Protein, Urine (Dipstick) Negative (Neg-Trace); Specific Gravity, Urine 1.015 (1.005-1.030); Urobilinogen 0.2 mg/dL (Less than 2)
[2022-06-14 01:06] LABS: Pregu Control Background? CLEAR/WHITE (CLR/WHITE); Pregu Control Bar Appear? YES (CONTROL BAR); Specific Gravity 1.015 (1.002-1.036)
[2022-06-14 01:07] LABS: Pregnancy Test - Urine (BHCG) Negative (Negative)
[2022-06-14 01:09] LABS: Hemoglobin 13.4 g/dL (12.0-16.0); Mean Corpuscular HGB CONC 34.3 g/dL (32.0-36.0); Mean Corpuscular Hemoglobin 33.3 pg (27.0-31.0); Platelet Count 211 thou/uL (130-400); RBC Distribution Width 12.2 % (11.5-14.5); Red Blood Cell (RBC) Count 4.01 mill/uL (4.20-5.40); White Blood Cell (WBC) Count 8.3 thou/uL (4.8-10.8)
[2022-06-14 01:20] LABS: ALT (SGPT) 8 U/L (8-55); AST (SGOT) 15 U/L (5-34); Albumin 3.8 g/dL (3.5-5.0); Alkaline Phosphatase 27 U/L (40-110); Anion Gap 11 mmol/L (10-20); BUN (Urea Nitrogen) 13 mg/dL (7.0-18.7); Bilirubin, Total 0.2 mg/dL (0.2-1.2); Calc. Creatinine Clearance 0 mL/min (70-130); Calcium 9.4 mg/dL (7.8-10.44); Carbon Dioxide 27 mmol/L (22-29); Chloride 108 mmol/L (98-107); Estimated GFR 110; Globulin 2.2 g/dL (2.4-3.5); Glucose 88 mg/dL (70-105); Lipase 51 U/L (8-78); Potassium 3.9 mmol/L (3.5-5.1); Sodium 142 mmol/L (136-145)
[2022-06-14 01:37] LABS: Eosinophils 3 % (0-10); Lymphocytes 52 % (21-51); MDiff Complete? YES; Monocytes 6 % (0-10); Neutrophil 39 % (42-75)
[2022-06-14] MEDS ORDERED: Escitalopram Oxalate 10 mg Tablet PO SCH (01:45)
== END 2022-06-14 01:35 | disposition home or self-care (01) ==
LOC: BURERS 00:10
DX: R11.0 Nausea (principal); F17.210 Nicotine dependence, cigarettes, uncomplicated
CPT/HCPCS: 36415; 80053; 81003; 81025; 83690; 85025; 99284; Q0162

== ENCOUNTER 2022-06-22 21:24 | Emergency (ER) | payer SELFPAY ==
[2022-06-22 21:54] LABS: Bilirubin Negative (Negative); Blood, Urine Negative (Negative); Clarity Clear (Clear); Glucose, Urine (Dipstick) Negative (Negative); Ketone, Urine Negative (Negative); Leukocyte Negative (Negative); Nitrite Negative (Negative); Protein, Urine (Dipstick) Negative (Neg-Trace); Urobilinogen 0.2 mg/dL (Less than 2); pH, Urine 6.5 (5.0-9.0)
[2022-06-22] MEDS ORDERED: Ondansetron PF 4 MG/2 ML Vial ONE (22:23)
[2022-06-22] MEDS ORDERED: Glycopyrrolate 0.4 MG/ 2 ML VIAL ONE (22:23)
[2022-06-22 22:25] LABS: #Basophils 0.1 thou/uL (0.0-0.2); #Eosinphils 0.2 thou/uL (0.0-0.7); #Lymphocytes 3.1 thou/uL (1.20-3.40); #Monocytes 0.4 thou/uL (0.11-0.59); #Neutrophils 4.6 thou/uL (1.40-6.50); %Basophils 0.9 % (0.0-1.0); %Eosinophils 2.2 % (0.0-10.0); %Lymphocytes 37.2 % (21.0-51.0); %Monocytes 4.6 % (0.0-10.0); Hemoglobin 12.7 g/dL (12.0-16.0); Mean Corpuscular HGB CONC 34.4 g/dL (32.0-36.0); Mean Corpuscular Hemoglobin 33.5 pg (27.0-31.0); Mean Corpuscular Volume 97.5 fL (78.0-98.0); Mean Platelet Volume 6.8 fL (7.4-10.4); Platelet Count 194 thou/uL (130-400); RBC Distribution Width 12.3 % (11.5-14.5); Red Blood Cell (RBC) Count 3.79 mill/uL (4.20-5.40); White Blood Cell (WBC) Count 8.4 thou/uL (4.8-10.8)
[2022-06-22 22:43] LABS: ALT (SGPT) 9 U/L (8-55); AST (SGOT) 16 U/L (5-34); Albumin 3.9 g/dL (3.5-5.0); Alkaline Phosphatase 25 U/L (40-110); Anion Gap 11 mmol/L (10-20); BUN (Urea Nitrogen) 10 mg/dL (7.0-18.7); Bilirubin, Total 0.2 mg/dL (0.2-1.2); Calc. Creatinine Clearance 0 mL/min (70-130); Calcium 9.4 mg/dL (7.8-10.44); Carbon Dioxide 28 mmol/L (22-29); Chloride 106 mmol/L (98-107); Estimated GFR 112; Globulin 2.4 g/dL (2.4-3.5); Glucose 99 mg/dL (70-105); Lipase 29 U/L (8-78); Potassium 3.9 mmol/L (3.5-5.1); Protein, Total 6.3 g/dL (6.0-8.3); Sodium 141 mmol/L (136-145)
== END 2022-06-22 23:30 | disposition home or self-care (01) ==
LOC: BURERS 21:24
DX: R10.30 Lower abdominal pain, unspecified (principal); R11.0 Nausea; F17.210 Nicotine dependence, cigarettes, uncomplicated
CPT/HCPCS: 74018; 80053; 81003; 83690; 85025; 96361; 96374; J2405

== ENCOUNTER 2022-08-12 11:03 | Emergency (ER) | payer MEDICAID, SELFPAY ==
[2022-08-12 11:36] LABS: #Basophils 0.1 thou/uL (0.0-0.2); #Eosinphils 0.1 thou/uL (0.0-0.7); #Lymphocytes 3.3 thou/uL (1.20-3.40); #Monocytes 0.5 thou/uL (0.11-0.59); #Neutrophils 4.9 thou/uL (1.40-6.50); %Basophils 1.3 % (0.0-1.0); %Lymphocytes 37.2 % (21.0-51.0); %Monocytes 6.1 % (0.0-10.0); %Neutrophils 54.5 % (42.0-75.0); Mean Corpuscular HGB CONC 34.8 g/dL (32.0-36.0); Mean Corpuscular Hemoglobin 33.5 pg (27.0-31.0); Mean Corpuscular Volume 96.3 fL (78.0-98.0); Mean Platelet Volume 7.3 fL (7.4-10.4); Platelet Count 223 thou/uL (130-400); RBC Distribution Width 11.7 % (11.5-14.5); Red Blood Cell (RBC) Count 4.48 mill/uL (4.20-5.40); White Blood Cell (WBC) Count 8.9 thou/uL (4.8-10.8)
[2022-08-12] MEDS ORDERED: Aspirin Chewable 81 MG TAB ONE (12:03)
[2022-08-12] MEDS ORDERED: Lidocaine Viscous Sol 2% 15 ml UD Cup ONE (12:03)
[2022-08-12] MEDS ORDERED: Mag-Al Plus 1200 MG/1200 MG/120 MG/30 ML UDCUP ONE (12:03)
[2022-08-12 12:07] LABS: ALT (SGPT) 12 U/L (8-55); AST (SGOT) 21 U/L (5-34); Albumin 4.8 g/dL (3.5-5.0); Alkaline Phosphatase 28 U/L (40-110); Anion Gap 16 mmol/L (10-20); BUN (Urea Nitrogen) 10 mg/dL (7.0-18.7); Bilirubin, Total 0.6 mg/dL (0.2-1.2); Calc. Creatinine Clearance 0 mL/min (70-130); Calcium 9.8 mg/dL (7.8-10.44); Carbon Dioxide 24 mmol/L (22-29); Chloride 103 mmol/L (98-107); Estimated GFR 105; Globulin 2.8 g/dL (2.4-3.5); Glucose 93 mg/dL (70-105); Potassium 3.6 mmol/L (3.5-5.1); Protein, Total 7.6 g/dL (6.0-8.3); Sodium 139 mmol/L (136-145)
== END 2022-08-12 12:48 | disposition home or self-care (01) ==
LOC: BURERS 11:03
DX: K21.9 Gastro-esophageal reflux disease without esophagitis (principal); F17.210 Nicotine dependence, cigarettes, uncomplicated
CPT/HCPCS: 71045; 80053; 83880; 84484; 85025; 93005

== ENCOUNTER 2023-01-04 14:03 | Emergency (ER) | payer SELFPAY ==
[2023-01-04 14:37] LABS: #Eosinphils 0.2 thou/uL (0.0-0.7); #Lymphocytes 1.9 thou/uL (1.20-3.40); #Monocytes 0.6 thou/uL (0.11-0.59); #Neutrophils 4.3 thou/uL (1.40-6.50); %Basophils 0.6 % (0.0-1.0); %Eosinophils 2.2 % (0.0-10.0); %Monocytes 7.9 % (0.0-10.0); %Neutrophils 62.2 % (42.0-75.0); Hemoglobin 13.9 g/dL (12.0-16.0); Mean Corpuscular HGB CONC 34.2 g/dL (32.0-36.0); Mean Corpuscular Hemoglobin 33.4 pg (27.0-31.0); Mean Corpuscular Volume 97.5 fl (78.0-98.0); Mean Platelet Volume 6.6 fL (7.4-10.4); Platelet Count 240 10x3/uL (130-400); RBC Distribution Width 11.8 % (11.5-14.5); Red Blood Cell (RBC) Count 4.15 mill/uL (4.20-5.40); White Blood Cell (WBC) Count 6.9 10x3/uL (4.8-10.8)
[2023-01-04 14:53] LABS: Bilirubin Negative (Negative); Blood, Urine Negative (Negative); Clarity Clear (Clear); Glucose, Urine (Dipstick) Negative (Negative); Ketone, Urine Negative (Negative); Leukocyte Negative (Negative); Nitrite Negative (Negative); Protein, Urine (Dipstick) Negative (Neg-Trace); Urobilinogen 0.2 mg/dL (Less than 2)
[2023-01-04 14:54] LABS: Specific Gravity, Urine 1.002 (1.002-1.036)
[2023-01-04 14:56] LABS: ALT (SGPT) 17 U/L (8-55); AST (SGOT) 19 U/L (5-34); Albumin 4.3 g/dL (3.5-5.0); Alkaline Phosphatase 30 U/L (40-110); Anion Gap 12 mmol/L (10-20); BUN (Urea Nitrogen) 8 mg/dL (7.0-18.7); Bilirubin, Total 0.3 mg/dL (0.2-1.2); Calc. Creatinine Clearance 0 mL/min (70-130); Calcium 9.5 mg/dL (7.8-10.44); Carbon Dioxide 27 mmol/L (22-29); Chloride 106 mmol/L (98-107); Estimated GFR 115; Globulin 2.9 g/dL (2.4-3.5); Glucose 96 mg/dL (70-105); Potassium 3.6 mmol/L (3.5-5.1); Protein, Total 7.2 g/dL (6.0-8.3); Sodium 141 mmol/L (136-145)
== END 2023-01-04 16:37 | disposition home or self-care (01) ==
LOC: BURERS 14:03
DX: E86.0 Dehydration (principal); R53.1 Weakness; F17.210 Nicotine dependence, cigarettes, uncomplicated
CPT/HCPCS: 36415; 71045; 80053; 81003; 83880; 84484; 85025; 87804; 93005

== ENCOUNTER 2023-12-20 15:55 | Emergency (ER) | payer OTHER ==
[2023-12-20] MEDS ORDERED: Ipratropium/Albuterol 3 ML NEB ONE (16:16)
== END 2023-12-20 16:35 | disposition home or self-care (01) ==
LOC: BURERS 15:55
DX: R00.2 Palpitations (principal); R06.00 Dyspnea, unspecified; F17.210 Nicotine dependence, cigarettes, uncomplicated
CPT/HCPCS: 71046; 93005; J7620

== ENCOUNTER 2024-05-04 02:42 | Emergency (ER) | payer OTHER, SELFPAY ==
[2024-05-04 03:15] LABS: #Basophils 0.1 thou/uL (0.0-0.2); #Eosinphils 0.3 thou/uL (0.0-0.7); #Lymphocytes 4.6 thou/uL (1.20-3.40); #Monocytes 0.5 thou/uL (0.11-0.59); #Neutrophils 4.7 thou/uL (1.40-6.50); %Basophils 1.3 % (0.0-1.0); %Eosinophils 3.3 % (0.0-10.0); %Lymphocytes 45.1 % (21.0-51.0); %Monocytes 4.8 % (0.0-10.0); %Neutrophils 45.5 % (42.0-75.0); Hematocrit 37.5 % (36.0-47.0); Hemoglobin 12.9 g/dL (12.0-16.0); Mean Corpuscular HGB CONC 34.4 g/dL (32.0-36.0); Mean Corpuscular Hemoglobin 32.4 pg (27.0-31.0); Mean Corpuscular Volume 94.2 fl (78.0-98.0); Mean Platelet Volume 6.6 fL (7.4-10.4); Platelet Count 202 10x3/uL (130-400); RBC Distribution Width 12.3 % (11.5-14.5); Red Blood Cell (RBC) Count 3.98 mill/uL (4.20-5.40); White Blood Cell (WBC) Count 10.3 10x3/uL (4.8-10.8)
[2024-05-04 03:31] LABS: Bilirubin Negative (Negative); Blood, Urine Negative (Negative); Clarity Clear (Clear); Glucose, Urine (Dipstick) Negative (Negative); Ketone, Urine Negative (Negative); Leukocyte Negative (Negative); Nitrite Negative (Negative); Protein, Urine (Dipstick) Negative (Neg-Trace); Urobilinogen 0.2 mg/dL (Less than 2)
[2024-05-04 03:35] LABS: ALT (SGPT) 13 U/L (8-55); AST (SGOT) 18 U/L (5-34); Albumin 4.1 g/dL (3.5-5.0); Alkaline Phosphatase 27 U/L (40-110); Anion Gap 13 mmol/L (10-20); BUN (Urea Nitrogen) 12 mg/dL (7.0-18.7); Calc. Creatinine Clearance 0 mL/min (70-130); Calcium 9.3 mg/dL (7.8-10.44); Carbon Dioxide 25 mmol/L (22-29); Chloride 106 mmol/L (98-107); Estimated GFR 103; Globulin 2.3 g/dL (2.4-3.5); Glucose 101 mg/dL (70-105); Potassium 3.5 mmol/L (3.5-5.1); Protein, Total 6.4 g/dL (6.0-8.3); Sodium 140 mmol/L (136-145); Troponin I Less than 0.010 ng/mL (< 0.028)
[2024-05-04 03:51] LABS: Bilirubin, Total 0.2 mg/dL (0.2-1.2)
[2024-05-04 03:52] LABS: CAUTI Indications for Culture Pelvic or flank pain; RBC/HPF None Seen HPF (0-3); Specific Gravity, Urine Less/Equal 1.005 (1.005-1.030); WBC/HPF None Seen HPF (0-3)
[2024-05-04 03:53] LABS: Bacteria/HPF None Seen HPF (None Seen); Squamous Epithelial 0-3 HPF (0-3); Urine Culture Reflex No No
[2024-05-04 03:56] LABS: Pregnancy Test - Urine (BHCG) Negative (Negative); Pregu Control Background? CLEAR/WHITE (CLR/WHITE); Pregu Control Bar Appear? YES (CONTROL BAR); Specific Gravity 1.004 (1.002-1.036)
[2024-05-04 04:00] LABS: Amphetamine Not Detected (NotDetected); Barbiturates Screen Not Detected (NotDetected); Benzodiazepine Screen Not Detected (NotDetected); Cocaine Metabolite Screen Not Detected (NotDetected); Methadone Not Detected (NotDetected); Methamphetamine Not Detected (NotDetected); Opiate Screen Not Detected (NotDetected); Oxycodone Screen Not Detected (NotDetected); Phencyclidine (PCP) Not Detected (NotDetected); THC/Cannabinoid Screen Not Detected (NotDetected); Tricyclic Screen Not Detected (NotDetected)
== END 2024-05-04 04:44 | disposition home or self-care (01) ==
LOC: BURERS 02:42
DX: R00.2 Palpitations (principal); F17.210 Nicotine dependence, cigarettes, uncomplicated
CPT/HCPCS: 36415; 80053; 80306; 81001; 81025; 84443; 84484; 85025; 93005

== ENCOUNTER 2024-07-17 16:01 | Emergency (ER) | payer OTHER, SELFPAY ==
[2024-07-17] MEDS ORDERED: Ibuprofen 200 MG TAB ONE (16:31)
[2024-07-17 16:56] LABS: Bilirubin Negative (Negative); Blood, Urine Negative (Negative); Clarity Clear (Clear); Glucose, Urine (Dipstick) Negative (Negative); Ketone, Urine Trace mg/dL (Negative); Leukocyte Negative (Negative); Nitrite Negative (Negative); Protein, Urine (Dipstick) Negative (Neg-Trace); pH, Urine 6.5 (5.0-9.0)
[2024-07-17 16:58] LABS: Pregnancy Test - Urine (BHCG) Negative (Negative)
[2024-07-17 16:59] LABS: Pregu Control Background? CLEAR/WHITE (CLR/WHITE); Pregu Control Bar Appear? YES (CONTROL BAR)
[2024-07-17 17:07] LABS: Bacteria/HPF Rare-Few HPF (None Seen); CAUTI Indications for Culture Dysuria,urgency,freq; RBC/HPF 0-3 HPF (0-3); WBC/HPF 0-3 HPF (0-3)
[2024-07-17 17:09] LABS: Urine Culture Reflex No No
[2024-07-17 17:28] LABS: #Basophils 0.1 thou/uL (0.0-0.2); #Eosinphils 0.2 thou/uL (0.0-0.7); #Lymphocytes 2.2 thou/uL (1.20-3.40); #Monocytes 0.5 thou/uL (0.11-0.59); #Neutrophils 6.7 thou/uL (1.40-6.50); %Basophils 0.8 % (0.0-1.0); %Eosinophils 1.7 % (0.0-10.0); %Lymphocytes 22.7 % (21.0-51.0); %Monocytes 5.4 % (0.0-10.0); %Neutrophils 69.3 % (42.0-75.0); Hemoglobin 13.5 g/dL (12.0-16.0); Mean Corpuscular HGB CONC 33.8 g/dL (32.0-36.0); Mean Corpuscular Hemoglobin 31.9 pg (27.0-31.0); Mean Corpuscular Volume 94.3 fl (78.0-98.0); Platelet Count 230 10x3/uL (130-400); RBC Distribution Width 11.9 % (11.5-14.5); Red Blood Cell (RBC) Count 4.25 mill/uL (4.20-5.40); White Blood Cell (WBC) Count 9.7 10x3/uL (4.8-10.8)
[2024-07-17 17:45] LABS: ALT (SGPT) 13 U/L (8-55); AST (SGOT) 16 U/L (5-34); Albumin 4.2 g/dL (3.5-5.0); Alkaline Phosphatase 27 U/L (40-110); Anion Gap 13 mmol/L (10-20); BUN (Urea Nitrogen) 10 mg/dL (7.0-18.7); Bilirubin, Total 0.5 mg/dL (0.2-1.2); Calc. Creatinine Clearance 0 mL/min (70-130); Calcium 9.7 mg/dL (7.8-10.44); Carbon Dioxide 26 mmol/L (22-29); Chloride 105 mmol/L (98-107); Estimated GFR 100; Globulin 2.8 g/dL (2.4-3.5); Glucose 105 mg/dL (70-105); Potassium 3.6 mmol/L (3.5-5.1); Sodium 140 mmol/L (136-145)
[2024-07-18 05:42] LABS: Chlam.trachomatis by PCR,Urine Not Detected (NotDetected); GC N.gonorrhoeae PCR,UrineVOID Not Detected (NotDetected)
== END 2024-07-17 18:06 | disposition home or self-care (01) ==
LOC: BURERS 16:01
DX: N34.2 Other urethritis (principal); F17.210 Nicotine dependence, cigarettes, uncomplicated
CPT/HCPCS: 36415; 80053; 81001; 81025; 85025; 87491; 87591; 99283